=== PATIENT | female | born 1960 | race Caucasian/White ===

== ENCOUNTER 2020-06-28 14:23 | Emergency (ER) | payer BC ==
[~2020-06-28] VITALS: Ht 170.2 cm; Wt 74.8 kg
[2020-06-28 15:08] VITALS: BP_SYST 154
--- NOTE | 2020-06-28 15:12 | NUR ---
SENT TO [facility]
[2020-06-28] MEDS ORDERED: IPRATROPIUM/ALBUTEROL SULFATE 3 ML AMPUL.NEB (DUONEB) ONE (16:10)
--- NOTE | 2020-06-28 16:12 | NUR ---
DR. MCGRAW EXAMINING PT
--- NOTE | 2020-06-28 16:14 | NUR ---
SENT TO [facility] FOR [facility]
[2020-06-28] MEDS ORDERED: predniSONE 20 MG TABLET PO ONE (16:15)
[2020-06-28] MEDS ORDERED: IPRATROPIUM/ALBUTEROL SULFATE 3 ML AMPUL.NEB (DUONEB) INH ONE (16:45)
--- NOTE | 2020-06-28 17:15 | NUR ---
, RE-EVALUATING PT
[2020-06-28 17:19] VITALS: BP_SYST 141
--- NOTE | 2020-06-28 17:19 | NUR ---
Patient given written and verbal discharge instructions and verbalizes understanding. ER MD discussed with patient the results and treatment provided. Patient in stable condition. ID arm band removed. Rx of PREDNISONE, ALBUTEROL given. Patient educated on pain management and to follow up with PMD. Pain Scale 0/10 Opportunity for questions provided and answered. Medication side effect fact sheet provided.
== END 2020-06-28 17:18 | disposition home or self-care (01) ==
LOC: SED 14:23
DX: J45.901 Unspecified asthma with (acute) exacerbation (principal); Z88.0 Allergy status to penicillin
CPT/HCPCS: 94640; 99283